=== PATIENT | male | born 1990 | race Caucasian/White ===

== ENCOUNTER 2024-06-18 15:51 | Outpatient (CLI) | payer BC, SELFPAY ==
--- NOTE | ~2024-06-18 | MR_ITS ---
EXAMINATION: MR shoulder LT wo con DATE: 06/18/2024 16:33 INDICATION: Left shoulder pain TECHNIQUE: Magnetic resonance imaging (MRI) of the left shoulder was performed without intravenous co ntrast. Sequences included axial PD-weighted FS FSE, coronal oblique PD-weighted FS FSE, coronal obli que T2-weighted FS FSE, sagittal PD-weighted FS FSE, and sagittal T1-weighted SE. COMPARISON: None. FINDINGS: Coracoacromial arch: The acromion undersurface is flat in morphology (type I). The coracoacromial ligament is normal. Mild acromioclavicular osteoarthritis. Rotator cuff: The supraspinatus and teres minor tendons are normal. Mild tendinopathy without discrete tear of the infraspinatus tendon. The subscapularis tendon is normal. Normal rotator cuff muscle bulk and signal. Biceps tendon, glenoid labrum and glenohumeral cartilage: Long head of the biceps tendon is normal. There is a tear of the posterior half of the labrum extendi ng from the 11:30-6:30 position. There is a large multilobulated para labral cyst arising from the po sterior superior labrum which extends 3.2 cm medial to lateral into the spinal glenoid notch where it measures 2.2 cm AP and 1.9 cm craniocaudally. There is deep chondral ulceration and moderate size ma rginal osteophyte along the posterior rim of the glenoid. Remaining glenohumeral cartilage is normal. Fluid: Physiologic amount of fluid in the glenohumeral joint and biceps tendon sheath. No loose osteochondr al bodies. There are small amount of fluid in the subacromial/subdeltoid bursa consistent with minima l bursitis. Bones: Normal marrow signal with no edema, fracture or abnormal marrow replacing process. IMPRESSION: 1. Mild glenohumeral osteoarthritis with tear of the posterior superior to posterior inferior glenoid labrum and associated large para labral cyst extending into the spinal glenoid notch which could pre dispose towards impingement of the suprascapular nerve. No evident infraspinatus atrophy or abnormal signal to suggest current neuropathy. 2. Mild infraspinatus tendinopathy without tear. 3. Mild acromioclavicular osteoarthritis. 4. Minimal subacromial/subdeltoid bursitis. Reviewed, dictated and finalized at location A. IMPRESSION: 1. Mild glenohumeral osteoarthritis with tear of the posterior superior to post erior inferior glenoid labrum and associated large para labral cyst extending i nto the spinal glenoid notch which could predispose towards impingement of the suprascapular nerve. No evident infraspinatus atrophy or abnormal signal to sug gest current neuropathy. 2. Mild infraspinatus tendinopathy without tear. 3. Mild acromioclavicular osteoarthritis. 4. Minimal subacromial/subdeltoid bursitis.
== END 2024-06-18 15:52 | disposition home or self-care (01) ==
LOC: MICIMG 15:57
DX: M19.012 Primary osteoarthritis, left shoulder (principal); S43.432A Superior glenoid labrum lesion of left shoulder, initial encounter; X58.XXXA Exposure to other specified factors, initial encounter; M71.312 Other bursal cyst, left shoulder; M75.82 Other shoulder lesions, left shoulder
CPT/HCPCS: 73221

== ENCOUNTER 2024-11-08 08:28 | Outpatient (CLI) | payer BC, SELFPAY ==
--- NOTE | ~2024-11-08 | US_ITS ---
EXAMINATION: US right upper quadrant DATE: 11/08/2024 08:46 INDICATION: Fatty liver. TECHNIQUE: Multiple grayscale and Doppler ultrasound images of the abdomen were obtained. COMPARISON: None FINDINGS: The visualized portions of the head and body of the pancreas are normal. The liver is normal without focal lesion. There is normal flow in main portal vein. The gallbladder is normal in size. No gallstones or gallbladder wall thickening. There was no sonographic Huynh's sign. The common duct is normal and measures 4 mm. IMPRESSION: 1. Normal right upper quadrant ultrasound. Reviewed, dictated and finalized at location E.
== END 2024-11-08 08:29 | disposition home or self-care (01) ==
LOC: GOSHIMG 08:28
PROVIDERS: PCP Internal Medicine; Visit Provider Internal Medicine
DX: K76.0 Fatty (change of) liver, not elsewhere classified (principal)
CPT/HCPCS: 76705

== ENCOUNTER 2025-01-31 16:22 | Outpatient (CLI) | payer BC, SELFPAY ==
--- NOTE | ~2025-01-31 | XR_ITS ---
EXAMINATION:C-spine complete including lateral flexion-extension views: DATE: 01/31/2025 INDICATION: Neck pain, left arm pain TECHNIQUE: AP, open mouth view, lateral views in flexion and extension and oblique views COMPARISON: None. FINDINGS: No acute bony lesions are cervical vertebrae. Normal alignment of the vertebrae in the lateral flexion-extension views. Stable alignment. Disc spaces and neural foramen are normal. Soft tissues are normal. IMPRESSION: 1. No plain radiographic abnormalities of C-spine. 2. If symptoms are persistent and not responding to conservative treatment, MRI is indicated. Reviewed, dictated and finalized at location T. [facility]
== END 2025-01-31 16:23 | disposition home or self-care (01) ==
LOC: MICIMG 16:28
PROVIDERS: PCP Internal Medicine
DX: M54.2 Cervicalgia (principal); M79.602 Pain in left arm
CPT/HCPCS: 72052